=== PATIENT | female | born 1955 | race Caucasian/White ===

== ENCOUNTER 2024-12-11 13:03 | Day surgery (SDC) | payer MEDICARE, BC ==
[~2024-12-11] VITALS: Ht 167.6 cm; Wt 55.9 kg
[~2024-12-11 13:03] MED LIST: Glycopyrrolate 0.2 MG/ML 1MLVIAL ONE; Norco 5-325 Ta1 EACH PO; Ondansetron HCl 2 MG / ML 2ML Vial ONE; ePHEDrine Sulfate 50 MG/ML 1ML Injection ONE
[2024-12-11] MEDS ORDERED: PRAV20 (13:13)
[2024-12-11] MEDS ORDERED: LOSARTAN POTASS25 M2 (13:13)
[2024-12-11 15:30] VITALS: BP 118/78
== END 2024-12-11 15:15 | disposition home or self-care (01) ==
LOC: ORSCSDS 13:03
PROVIDERS: Surgery
PROC: 0DJD8ZZ Inspection of Lower Intestinal Tract, Via Natural or Artificial Opening Endoscopic (ICD-10-PCS; principal; 2024-12-11 14:15)
DX: Z12.11 Encounter for screening for malignant neoplasm of colon (principal); Z86.0101 Personal history of adenomatous and serrated colon polyps; Z85.6 Personal history of leukemia; I10 Essential (primary) hypertension; E05.90 Thyrotoxicosis, unspecified without thyrotoxic crisis or storm; E78.2 Mixed hyperlipidemia; Z79.899 Other long term (current) drug therapy
CPT/HCPCS: J0461; J2003; J2405; J2704; J7120